=== PATIENT | female | born 1985 | race Hispanic/Latino ===

== ENCOUNTER 2016-08-05 18:37 | Emergency (ER) | payer OTHER ==
[~2016-08-05] VITALS: Ht 149.9 cm; Wt 72.7 kg
[~2016-08-05 18:37] MED LIST: ALBU8.5H2 INHALATION; ALBU90AE IH; DXM4T PO; FLUT12AE8 IH; ONDA4TAB9 PO; PRE20 PO
[2016-08-05 18:50] VITALS: BP 124/85; PULSE 93; RESP 20; O2SAT 98
[2016-08-05] MEDS ORDERED: Albuterol 2.5 mg/3 mL Inhalation Solution NEB ONE ×2 (20:35→21:05)
[2016-08-05 20:58] VITALS: PULSE 93; RESP 20; O2SAT 98
--- NOTE | 2016-08-05 21:00 | ED.REPORT ---
HPI-Dyspnea / Wheezing Date of Service Aug 05, 2016 ED Provider: Erik Bowles MD Pt is a 31 y.o. female with a hx of asthma who presents to the ED c/o SOB onset last night. Pt reports associated cough, chest pain, and headache. She states that she no longer has a prescription for an inhaler and used her daughters inhaler earlier today with no relief. Pt denies recent steroid use. Nursing Notes Stated Complaint: ASTHMA Chief Complaint: Respiratory Distress Nursing Notes Reviewed: Yes Allergies: Coded Allergies: No Known Allergies (Verified Allergy, Unknown, 12/25/15) Scheduled Benzonatate (Benzonatate) 200 Mg Capsule 200 MG PO TID Fluticasone Propionate (Flovent HFA 110 mcg) 12 Gm Aer.w.adap 1 PUFF IH BID Fluticasone Propionate (Flovent HFA 110 mcg) 12 Gm Aer.w.adap 2 PUFFS IH BID Prednisone (PredniSONE) 20 Mg Tablet 40 MG PO DAILY Prednisone (PredniSONE) 20 Mg Tablet 20 MG PO DAILY 40mg daily for 3 days Prednisone (PredniSONE) 20 Mg Tablet 20 MG PO TID Scheduled PRN Albuterol HFA (Proair HFA) 8.5 Gm Hfa.aer.ad 2 PUFFS INHALATION Q4H PRN PRN For Shortness of Breath Albuterol Sulfate (Proair Respiclick) 90 Mcg Aer.pow.ba 90 MCG IH Q4H PRN PRN For Shortness of Breath Dexamethasone (Dexamethasone) 4 Mg Tablet 10 MG PO DAILY PRN PRN inflammation Ondansetron ODT (Zofran ODT) 4 Mg Tablet 4 MG PO Q4H PRN PRN For Nausea General Time Seen by MD: 20:59 Chief Complaint Shortness of breath Hx Obtained From: Patient Arrived By: Walk-in Sudden in Onset?: Yes Onset Occurred: Yesterday Symptom Duration: Since onset Location: : Substernal Quality: Painful Severity: Current: Mild Recent Healthcare: No recent doctor visit, No recent hospitalization Past Medical History Past Medical History Sepsis secondary to endometritis Pyelonephritis Reports: Asthma Past Surgical History Tubal ligation of right ovary, when Dr. Luo was doing the section he found that the left ovary was absent. Reports: Appendectomy, Family History Noncontributory Smoking History Former Smoker Social History Alcohol Use: "Social" Drug Use: THC Other Social History: Good social support, Ambulatory Status Independent Review of Systems Respiratory: Reports: Non-productive cough, Shortness of breath Cardiovascular: Reports: Chest pain Complete sys rev & neg: except as marked. Neurologic: Reports: Headache Physical Exam Initial Vital Signs Vital Signs (First) Date Time Temp Pulse Resp B/P Pulse Ox O2 Delivery O2 Flow Rate FiO2 08/05/16 18:50 36.5 93 20 124/85 98 Room Air Initial VS: Reviewed, Vital signs normal Head / Eyes: Atraumatic, Normocephalic, PERRL Abdomen / GI: No distention Extremities: Vascular intact, Neuro intact Skin: Warm, Dry, No cyanosis Neurologic: Alert, Oriented, Nonfocal Psychiatric: Mood/affect normal, Behavior normal, Normal thought content General/Constitutional: Awake, Alert, Well appearing, Well developed, Well hydrated, Well nourished, Not toxic appearing Neck: Atraumatic Respiratory / Chest: Atraumatic Wheezing / Retractions: Positive: Wheezing expiratory Dry cough No focal changes Cardiovascular: Regular rhythm, Heart sounds NL, Peripheral circulation NL Heart Rate / Rhythm: Positive: Tachycardia Interpretation & Diagnostics X-Ray Chest Interpretation Chest Xray Interpretation: IMPRESSION: No acute cardiopulmonary disease. Interpretation / Wet Read by: Wet read ED physician Re-Eval/Medical Decision Med Decision/Clinical Course 31-year-old female with acute exacerbation of asthma, probably from a viral upper respiratory infection. She responded nicely to nebulized albuterol and ipratropium and prednisone. She will be discharged home with a prescription for prednisone and benzonatate and a albuterol inhaler refill. Source of Hx: Old records Re-Evaluation/Progress #1: Time of Eval: 21:46 Patient Status: Condition improved, Moderate relief Re-Evaluation/Progress Note: Pt rechecked. Pt states she is feeling improved. Re-Evaluation/Progress #2: Time of Eval: 22:41 Re-Evaluation/Progress Note: Pt rechecked. Pt states her headache has resolved. Discussed plan for discharge, pt understands and agrees with plan. Re-Evaluation/Progress #3: Time of Eval: 23:52 )( Re-Eval Resp / Chest: No wheezing Re-Evaluation/Progress Note: Pt rechecked. Pt has no wheezing. Discussed plan for discharge, pt understands and agrees with plan. Counseled Regarding: Diagnosis, Need for follow-up, When/why to return to ED Discharge & Departure Impression: Primary Impression: Asthma exacerbation Disposition: Home Discharge Condition All VS Reviewed: Yes Condition: Improved Patient Instructions: Asthma (ED) Additional Instructions: No evidence of pneumonia. You received albuterol and ipratropium nebulizers, benzonatate (Tessalon) cough medicine, and prednisone. Continue these medications at home. Referrals: NOPCP (PCP) [facility] Scribe Attestation Portions of this note were transcribed by Aidan Aguirre. I, Dr. Bowles personally performed the history, physical exam and medical decision-making; I reviewed and confirmed the accuracy of the information in the transcribed note. Signed by: Shantelle Alcala, 08/05/16 and [id number] copies to: [facility] Erik Bowles MD Aug 05, 2016 21:00 AIDAN AGUIRRE Aug 05, 2016 21:06
[2016-08-05] MEDS ORDERED: Albuterol-Ipratropium 3 mL Inhalation Solution NEB ONE (21:05)
[2016-08-05] MEDS ORDERED: predniSONE 20 mg Tablet PO ONE (21:05)
[2016-08-05 21:45] VITALS: BP 132/89; O2SAT 98
[2016-08-05] MEDS ORDERED: _Proair 200 Puff/8.5 GM Inhaler INHALATION PRN ×2 (21:55→22:08)
[2016-08-05 22:09] VITALS: PULSE 89; RESP 18; O2SAT 98
[2016-08-05 22:33] VITALS: BP 124/64; PULSE 85; RESP 31; O2SAT 100
[2016-08-05 23:50] VITALS: BP 118/73; PULSE 95; RESP 14; O2SAT 97
[2016-08-05] MEDS ORDERED: 0.9% Sodium Chloride 1,000 ML IV ONE (23:57)
[2016-08-06] MEDS ORDERED: Pantoprazole 4 mg/mL 10 mL Inj IVPUSH ONE
[2016-08-06] MEDS ORDERED: HYDROmorphone 0.5 mg/0.5 mL iSecure Syringe IVPUSH PRN
[2016-08-06] MEDS ORDERED: Ondansetron 2 mg/mL 2 mL Inj IVPUSH PRN
[2016-08-06] MEDS ORDERED: BENZ200C44 PO (00:10)
[2016-08-06] MEDS ORDERED: PRE20 PO (00:10)
[2016-08-06 00:18] VITALS: BP 131/78; PULSE 90; RESP 12; O2SAT 96
--- NOTE | 2016-08-06 08:35 | DRSVH ---
PROCEDURE: X-RAY CHEST, TWO VIEWS ([id number]) INDICATIONS: cough, chest pain, SHORTNESS OF BREATH TECHNIQUE: 2 views of the chest were acquired. COMPARISON: [facility], CR, XR CHEST 2VW, 12/25/2015, 11:56. FINDINGS: Surgical changes and devices: None. Lungs and pleura: No pleural effusions or pneumothorax. Lungs are clear. Mediastinum: Mediastinal contours are normal. Heart size is normal. Bones and chest wall: No suspicious bony abnormalities. Soft tissues appear unremarkable. IMPRESSION: No acute cardiopulmonary disease. Dictated by: Jose Jean Julio Interpreted: Kisha Gibson MD on 08/06/2016 at 8:34 Transcribed by: KATJA on 08/06/2016 at 8:34 Approved by: Kisha Gibson M.D. on 08/08/2016 at 9:01
== END 2016-08-06 00:19 | disposition home or self-care (01) ==
LOC: SED 18:37
DX: J45.901 Unspecified asthma with (acute) exacerbation (principal); Z79.891 Long term (current) use of opiate analgesic; Z79.899 Other long term (current) drug therapy
CPT/HCPCS: 71020; 94640; 94664; 99284; J7613; J7620

== ENCOUNTER 2016-09-11 17:22 | Emergency (ER) | payer OTHER ==
[~2016-09-11] VITALS: Ht 149.9 cm; Wt 81.8 kg
[~2016-09-11 17:22] MED LIST changes: +BENZ200C44 PO
[2016-09-11 17:32] VITALS: BP 114/70; PULSE 86; RESP 18; O2SAT 96
== END 2016-09-11 17:59 | disposition left against medical advice (07) ==
LOC: SED 17:22
DX: Z53.21 Procedure and treatment not carried out due to patient leaving prior to being seen by health care provider (principal)